=== PATIENT | female | born 1930 | race African-American/Black ===

== ENCOUNTER 2016-11-26 20:09 | Emergency (ER) | payer MEDICARE, BC ==
[2016-11-26 19:19] LABS: WBC (NOT ORDERED) (RFLEX) 0 (0-5)
[2016-11-26 19:28] LABS: ASCORBIC ACID (UR NOT ORDER) NEG (NEG); BILIRUBIN, URINE NEGATIVE (NEG); ER URINALYSIS TAT 0 Hrs 11 Mins; KETONE, URINE NEGATIVE (NEG); LEUKOCYTE ESTERASE(NOT OR NEG (NEG); NITRITE (URINE) NEG (NEG)
[~2016-11-26 20:09] MED LIST: BRIMONIDINE0.2 % OPH; HALF81 PO; LEVEMIR SC; MOBIC15 MG PO; PEPTO BISMOL LIQ1 ML PO; PRIN10 PO; TUMSROLL PO; XALAT OPH; ZOCOR20 PO
[2016-11-26 20:25] LABS: BASOPHILS 0.2 %; BASOPHILS ABSOLUTE 0.03 10/3/uL (0.0-0.16); EOSINOPHILS 1.1 %; EOSINOPHILS ABSOLUTE 0.13 10/3/uL (0.0-0.53); HEMOGLOBIN 13.4 g/dL (12.0-16.0); IMMATURE GRANULOCYTES 0.7 %; IMMATURE GRANULOCYTES ABSOLUTE 0.09 10/3/uL (0.0-0.11); LYMPHOCYTES 29.3 %; LYMPHOCYTES ABSOLUTE 3.57 10/3/uL (0.67-4.30); MEAN CORPUSCULAR HEMOGLOB 30.7 pg (26.0-34.0); MEAN CORPUSCULAR VOLUME 90.2 fL (80-100); MEAN PLATELET VOLUME 9.5 fL (9.2-13.0); MONOCYTES 4.9 %; NEUTROPHILS 63.8 %; NEUTROPHILS ABSOLUTE 7.76 10/3/uL (2.02-8.40); RBC DISTRIBUTION WIDTH 12.8 % (12.0-16.0); RED CELL COUNT 4.37 10/6/uL (4.0-5.6)
[2016-11-26 20:29] LABS: ER CBC TAT 0 Hrs 15 Mins; HEMATOCRIT 39.4 % (36.0-48.0); MANUAL DIFF NO %; WHITE BLOOD CELLS 12.2 10/3/uL (4.5-10.5)
[2016-11-26 20:33] LABS: PROTIME (NOT ORD) 13.3 SEC (12.0-14.5)
[2016-11-26 20:35] LABS: ACETONE NEG
[2016-11-26 20:41] LABS: ALBUMIN 3.2 G/DL (3.5-5.0); CHEST PAIN PROFILE TAT 0 Hrs 27 Mins; CHLORIDE, SERUM 100 MMOL/L (96-112); CO2 (CARBON DIOXIDE) 25 MMOL/L (24-34); CREATININE 1.29 MG/DL (0.55-1.02); GFR AFRICAN AMERICAN 44 ML/MIN (>=60); GFR NON AFRICAN AMERICAN 38 ML/MIN (>=60); PARTIAL THROMBO TIME 22.1 SEC (22.5-37.2); SGOT(AST) 20 U/L (5-40); SGPT(ALT) 25 U/L (5-65); TOTAL PROTEIN 7.6 G/DL (6.0-8.5); TROPONIN I <0.02 NG/ML (<0.05)
[2016-11-26 20:42] LABS: ALKALINE PHOSPHATASE 128 U/L (45-117); BUN (BLOOD UREA NITROGEN) 25 MG/DL (6-23); CALCIUM, SERUM 9.4 MG/DL (8.5-10.4); DIRECT BILIRUBIN < 0.1 MG/DL (0.0-0.4); GLUCOSE, SERUM 254 MG/DL (60-99); INDIRECT BILIRUBIN(NOT ORDER) 0.2 MG/DL (0.1-0.9); POTASSIUM, SERUM 4.9 MMOL/L (3.5-5.3); SODIUM, SERUM 135 MMOL/L (135-148); TOTAL BILIRUBIN 0.3 MG/DL (0-1.2)
[2016-11-26 20:43] LABS: PLATELET COUNT 166 10/3/uL (150-400); PLATELET ESTIMATE ADQ (ADEQUATE); RBC MORPHOLOGY NORM (NORMAL)
[2016-11-26 20:50] LABS: LACTATE 0.9 MMOL/L (0.3-2.4)
[2016-12-30] MEDS ORDERED: COMBIGAN0.2 MG/0.5 OPH (15:43)
[2016-12-30] MEDS ORDERED: PREDFORTE OPH (15:44)
[2016-12-30] MEDS ORDERED: CYCLOGYL OPH 1%2 ML OPH (15:45)
[2016-12-30] MEDS ORDERED: TRESIBA FL100 UNIT/1 SC (15:46)
[2016-12-30] MEDS ORDERED: ZESTRIL20 MG PO (15:46)
[2016-12-30] MEDS ORDERED: MYLANTA PO (15:47)
[2016-12-30] MEDS ORDERED: PRILOSEC OTC20 MG PO (15:47)
== END 2016-11-26 22:33 | disposition home or self-care (01) ==
LOC: ER 20:09
PROVIDERS: Nurse Practitioner
DX: K59.00 Constipation, unspecified (principal); H66.91 Otitis media, unspecified, right ear; E11.65 Type 2 diabetes mellitus with hyperglycemia; I10 Essential (primary) hypertension; Z90.710 Acquired absence of both cervix and uterus; Z79.82 Long term (current) use of aspirin; Z79.4 Long term (current) use of insulin
CPT/HCPCS: 74176; 80048; 80076; 81001; 82009; 83605; 83735; 84145; 84484; 85025; 85610; 85730; 93005; 96374; 99284; J1980; J2405

== ENCOUNTER 2016-12-10 16:14 | Emergency (ER) | payer MEDICARE, BC ==
[2016-12-10 14:03] LABS: BASOPHILS 0.2 %; BASOPHILS ABSOLUTE 0.02 10/3/uL (0.0-0.16); EOSINOPHILS 1.1 %; EOSINOPHILS ABSOLUTE 0.09 10/3/uL (0.0-0.53); ER CBC TAT 0 Hrs 05 Mins; HEMATOCRIT 39.9 % (36.0-48.0); HEMOGLOBIN 13.6 g/dL (12.0-16.0); IMMATURE GRANULOCYTES 0.2 %; IMMATURE GRANULOCYTES ABSOLUTE 0.02 10/3/uL (0.0-0.11); LYMPHOCYTES 25.9 %; LYMPHOCYTES ABSOLUTE 2.14 10/3/uL (0.67-4.30); MEAN CORPUS HGB CONC 34.1 g/dL (32.0-36.0); MEAN CORPUSCULAR HEMOGLOB 30.5 pg (26.0-34.0); MEAN CORPUSCULAR VOLUME 89.5 fL (80-100); MEAN PLATELET VOLUME 8.4 fL (9.2-13.0); MONOCYTES 4.6 %; MONOCYTES ABSOLUTE 0.38 10/3/uL (0.21-1.20); NEUTROPHILS ABSOLUTE 5.61 10/3/uL (2.02-8.40); RBC DISTRIBUTION WIDTH 13.1 % (12.0-16.0); RED CELL COUNT 4.46 10/6/uL (4.0-5.6); WHITE BLOOD CELLS 8.3 10/3/uL (4.5-10.5)
[2016-12-10 14:04] LABS: MANUAL DIFF NO %; PLATELET COUNT 386 10/3/uL (150-400)
[2016-12-10 14:14] LABS: INTERNATIONAL NORMAL RATI 1.1 UNITS (-); PROTIME (NOT ORD) 13.9 SEC (12.0-14.5)
[2016-12-10 14:19] LABS: CALCIUM, SERUM 9.6 MG/DL (8.5-10.4); CHEST PAIN PROFILE TAT 0 Hrs 21 Mins; CHLORIDE, SERUM 100 MMOL/L (96-112); CO2 (CARBON DIOXIDE) 27 MMOL/L (24-34); CREATININE 1.17 MG/DL (0.55-1.02); GFR AFRICAN AMERICAN 50 ML/MIN (>=60); GFR NON AFRICAN AMERICAN 43 ML/MIN (>=60); POTASSIUM, SERUM 4.4 MMOL/L (3.5-5.3); SODIUM, SERUM 135 MMOL/L (135-148); TROPONIN I <0.02 NG/ML (<0.05)
[2016-12-10 14:20] LABS: BUN (BLOOD UREA NITROGEN) 20 MG/DL (6-23); GLUCOSE, SERUM 175 MG/DL (60-99)
[2016-12-10 16:44] LABS: ASCORBIC ACID (UR NOT ORDER) NEG (NEG); BILIRUBIN, URINE NEGATIVE (NEG); ER URINALYSIS TAT 0 Hrs 10 Mins; KETONE, URINE NEGATIVE (NEG); LEUKOCYTE ESTERASE(NOT OR NEG (NEG); NITRITE (URINE) NEG (NEG); WBC (NOT ORDERED) (RFLEX) < 1 (0-5)
[2016-12-30] MEDS ORDERED: COMBIGAN0.2 MG/0.5 OPH (15:43)
[2016-12-30] MEDS ORDERED: PREDFORTE OPH (15:44)
[2016-12-30] MEDS ORDERED: CYCLOGYL OPH 1%2 ML OPH (15:45)
[2016-12-30] MEDS ORDERED: ZESTRIL20 MG PO (15:46)
[2016-12-30] MEDS ORDERED: TRESIBA FL100 UNIT/1 SC (15:46)
[2016-12-30] MEDS ORDERED: PRILOSEC OTC20 MG PO (15:47)
[2016-12-30] MEDS ORDERED: MYLANTA PO (15:47)
== END 2016-12-10 18:24 | disposition home or self-care (01) ==
LOC: ER 16:14
PROVIDERS: Emergency Medicine
DX: R10.13 Epigastric pain (principal); I10 Essential (primary) hypertension; E11.9 Type 2 diabetes mellitus without complications; Z79.4 Long term (current) use of insulin; Z79.82 Long term (current) use of aspirin; Z79.899 Other long term (current) drug therapy
CPT/HCPCS: 71020; 74176; 80048; 81001; 83735; 84484; 85025; 85610; 85730; 93005; 96374; 99284; C9113; J2405

== ENCOUNTER 2017-01-05 06:20 | Day surgery (SDC) | payer MEDICARE, BC ==
--- NOTE | ~2017-01-05 | EGD ---
EGD REPORT [facility] [address] [id number] NAME: REINA ZACARIAS : 34 STATUS : [place] [facility] [place]#: [id number] AGE: 86 ADM/REG DATE : 01/05/17 MR#: [id number] REPORT SERV DATE: 01/05/17 DICTATED BY: SD RAO DATE: 01/05/17 REPORT STATUS : Draft [facility]: [facility] DATE: 01/05/17 Endoscopy Center Patient Name: Reina Zacarias Date of : 1930 Attending MD: SD RAO MD Procedure Date No Time: 01/05/2017 Procedure: Upper GI endoscopy Indications: Epigastric abdominal pain, Nausea Referring MD: Janine FRANK MD Medicines: See the Anesthesia note for documentation of the administered medications Complications: No immediate complications. Procedure: Pre-Anesthesia Assessment: - ASA Grade Assessment: III - A patient with severe systemic disease. After obtaining informed consent, the endoscope was passed under direct vision. Throughout the procedure, the patient's blood pressure, pulse, and oxygen saturations were monitored continuously. The [facility] [id number] was introduced through the mouth, and advanced to the second part of duodenum. The upper GI endoscopy was accomplished without difficulty. The patient tolerated the procedure well. Findings: The 2nd part of the duodenum was normal. Biopsies were taken with a cold forceps for histology. The gastric antrum was normal. Biopsies were taken with a cold forceps for histology. The cardia and gastric fundus were normal on retroflexion. The lower third of the esophagus was tortuous. Impression: - Normal 2nd part of the duodenum. Biopsied. - Normal antrum. Biopsied. - Tortuous esophagus. Recommendation: - Patient has a contact number available for emergencies. The signs and symptoms of potential delayed complications were discussed with the patient. Return to normal activities tomorrow. Written discharge instructions were provided to the patient. - Regular diet. - Continue present medications. - FOR YOUR BIOPSY RESULTS: Please go to [email or web address] and register to receive your EGD REPORT [address] [address] NAME: REINA ZACARIAS : 34 STATUS : REG [facility]#: [id number] AGE: 86 ADM/REG DATE : 01/05/17 MR#: [id number] REPORT SERV DATE: 01/05/17 DICTATED BY: SD RAO DATE: 01/05/17 REPORT STATUS : Draft TRANSCRIBED BY: [email or web address] DATE: 01/05/17 results via the portal. Your biopsy results will be posted there in about 7 to 10 days. IF you do not see result in 10 days, call office. - Follow up with my nurse practitioner in 4 weeks Procedure Code(s): --- Professional --- 52501, Esophagogastroduodenoscopy, flexible, transoral; with biopsy, single or multiple Diagnosis Code(s): --- Professional --- Q39.9, Congenital malformation of esophagus, unspecified R10.13, Epigastric pain R11.0, Nausea CPT copyright 2013 [employer]. All rights reserved. The codes documented in this report are preliminary and upon web analytics developer review may be revised to meet current compliance requirements. Sd Rao MD SD RAO MD 01/05/2017 8:27 AM This report has been signed electronically. Number of Addenda: 0 Note Initiated On: 01/05/2017 8:14 AM Scope Withdrawal Time 0 hours 0 minutes 0 seconds [id number] [id number]
[~2017-01-05 06:20] MED LIST changes: +COMBIGAN0.2 MG/0.5 OPH; +CYCLOGYL OPH 1%2 ML OPH; +MYLANTA PO; +PREDFORTE OPH; +PRILOSEC OTC20 MG PO; +TRESIBA FL100 UNIT/1 SC; +ZESTRIL20 MG PO
== END 2017-01-05 23:59 | disposition home or self-care (01) ==
LOC: DMU 06:20
PROVIDERS: Internal Medicine Gastroenterology
PROC: 0DB68ZX Excision of Stomach, Via Natural or Artificial Opening Endoscopic, Diagnostic (ICD-10-PCS; 2017-01-05)
PROC: 0DB98ZX Excision of Duodenum, Via Natural or Artificial Opening Endoscopic, Diagnostic (ICD-10-PCS; principal; 2017-01-05 08:30)
DX: R10.13 Epigastric pain (principal); R11.0 Nausea; Q39.9 Congenital malformation of esophagus, unspecified; I10 Essential (primary) hypertension; I82.409 Acute embolism and thrombosis of unspecified deep veins of unspecified lower extremity; K44.9 Diaphragmatic hernia without obstruction or gangrene; M19.90 Unspecified osteoarthritis, unspecified site; K21.9 Gastro-esophageal reflux disease without esophagitis; E78.00 Pure hypercholesterolemia, unspecified; E11.9 Type 2 diabetes mellitus without complications; H35.30 Unspecified macular degeneration; H40.9 Unspecified glaucoma; Z98.41 Cataract extraction status, right eye; Z98.42 Cataract extraction status, left eye; Z96.1 Presence of intraocular lens; Z87.891 Personal history of nicotine dependence
CPT/HCPCS: 82962; 88305